=== PATIENT | male | born 1970 | race Caucasian/White ===

== ENCOUNTER → 2019-07-18 | Outpatient (CLI) | payer OTHER | END | disposition home or self-care (01) | LOC: LABWHC1 13:23 | DX: Z53.9 Procedure and treatment not carried out, unspecified reason (principal) ==

== ENCOUNTER → 2019-07-18 | Outpatient (CLI) | payer OTHER ==
--- NOTE | 2019-07-18 15:46 | PE ---
Nuclear medicine PET/CT HISTORY: Melanoma, initial Patient received 11.9 mCi F-18 FDG in delayed whole-body scanning was performed. There are no comparison studies available. Neck and chest: Within the left axilla there is an enlarged lymph node present, short axis measuremen t is approximately 2.7 cm. There is hypermetabolic uptake present. There is no mediastinal, hilar, lynch praclavicular, or cervical adenopathy. Coronary artery calcifications are present. No pleural or kirstie cardial effusion. No evident lung mass. ABDOMEN: At the patient's subcutaneous fat level over the left flank there are 2 soft tissue nodules present one of which measures approximately 2.7 cm and the second 15 cm. There is hypermetabolic upta ke associated with these 2 lesions. There is no ascites or retroperitoneal adenopathy. Liver shows lo w attenuation likely due to hepatic steatosis. Aorta shows normal caliber. Osseous structures show no hypermetabolic uptake. Lower extremities are within normal limits. IMPRESSION: Findings suggest metastatic disease as described.
== END | disposition home or self-care (01) ==
LOC: RADPETMAIN 11:57
DX: R59.0 Localized enlarged lymph nodes (principal); I25.10 Atherosclerotic heart disease of native coronary artery without angina pectoris; C43.59 Malignant melanoma of other part of trunk
CPT/HCPCS: 78815; A9552

== ENCOUNTER → 2019-07-21 | Outpatient (CLI) | payer OTHER | END | disposition home or self-care (01) | LOC: LABWHC1 09:11 | DX: Z01.818 Encounter for other preprocedural examination (principal); Z88.0 Allergy status to penicillin ==

== ENCOUNTER → 2019-12-22 | Outpatient (CLI) | payer OTHER ==
--- NOTE | 2019-12-22 21:51 | MR ---
EXAMINATION TYPE: MR tspine/lspine wo/w con DATE OF EXAM: 12/22/2019 COMPARISON: Nuclear medicine PET/CT 07/18/2019 HISTORY: Paresthesia, melanoma. TECHNIQUE: Multiplanar, multisequence images of the lumbar and thoracic spine is performed without and with IV c ontrast, utilizing 10 mL intravenous Gadavist FINDINGS: Thoracic spine MRI: Marrow reconversion is suspected. Thoracic vertebral bodies show preserved height and alignment. Disc spaces are relatively maintained. There is no evident foraminal encroachment or spinal stenosis. No sizable disc herniation. Thoracic cord signal is normal. C5-C6 shows a small post erior disc herniation in the right paracentral location. There is mild multilevel spondylosis and end plate discogenic marrow signal change. No abnormal enhancement following contrast administration. The re is a slight spinal curvature. IMPRESSION: Marrow reconversion is suspected, correlate for anemia. Mild degenerative disc changes. Lumbar MRI: Lumbar vertebral bodies show preserved height and alignment. There is multilevel spondylosis with end plate discogenic marrow signal change. Loss of disc height signal is greatest at L5-S1 greater than L 4-5. There is no significant spinal stenosis. The conus is at L1 shows an unremarkable appearance. Pepper spect marrow reconversion. L5-S1: There is posterior extension of endplate disc complex. Posterior central disc herniation conta cts the anterior thecal sac and possibly proximal S1 nerve roots. Circumferential extension endplate disc complex causes bilateral foraminal encroachment. There is facet arthropathy change. L4-5: Posterior disc bulge causes anterior mass effect on the thecal sac. There is some facet arthrop athy. No definite foraminal encroachment. L3-4, L2-3, L1-2 within normal limits. No abnormal enhancement following contrast administration. Impression: Degenerative disc disease as described.
== END | disposition home or self-care (01) ==
LOC: RADMRIMAIN 18:59
PROVIDERS: ATTEND Internal Medicine Hematology & Oncology
DX: C43.59 Malignant melanoma of other part of trunk (principal); R20.2 Paresthesia of skin; M50.30 Other cervical disc degeneration, unspecified cervical region; M51.36 Other intervertebral disc degeneration, lumbar region; E11.9 Type 2 diabetes mellitus without complications; Z88.0 Allergy status to penicillin; Z88.8 Allergy status to other drugs, medicaments and biological substances
CPT/HCPCS: 72157; 72158; A9585

== ENCOUNTER → 2019-12-24 | Outpatient (CLI) | payer OTHER ==
--- NOTE | 2019-12-24 13:40 | MR ---
EXAMINATION TYPE: MR brain wo/w con DATE OF EXAM: 12/24/2019 COMPARISON: None HISTORY: Low back pain TECHNIQUE: Multiplanar, multisequence images of the brain and brainstem is performed without and with IV contras t, utilizing 10 mL intravenous Gadavist . FINDINGS: Diffusion weighted images demonstrate no evidence of a recent infarct or other diffusion ab normality. There is approximately 10-15 focal areas of abnormal signal seen scattered throughout the white matter bilaterally which are not thick. All measure less than 5 mm. The ventricular system an d cisternal spaces are normal in size and appearance. The brain volume is age appropriate. Midline structures demonstrate normal morphology. The craniocervical junction appears within normal limits. Post contrast images demonstrate no abnormal enhancement. The dural venous sinuses appear pa tent. Tiny Thornwaldt cyst within the posterior nasopharynx. Mild chronic sinusitis and the globes ar e intact. IMPRESSION: 1. No acute intracranial process. No enhancing masses. 2. There are approximately 10-15 focal areas of abnormal signal seen scattered throughout the white m atter which are nonspecific. All measure less than 5 mm and most likely in the basis of hypertension, migraine headaches, or tiny areas of remote microvascular ischemia. Demyelinating process not entire ly excluded.
== END | disposition home or self-care (01) ==
LOC: RADMRIMAIN 12:18
PROVIDERS: ATTEND Internal Medicine Hematology & Oncology
DX: C43.59 Malignant melanoma of other part of trunk (principal); R93.0 Abnormal findings on diagnostic imaging of skull and head, not elsewhere classified
CPT/HCPCS: 70553; A9585

== ENCOUNTER → 2019-12-26 | Outpatient (CLI) | payer OTHER ==
--- NOTE | 2019-12-29 01:06 | CT ---
EXAMINATION TYPE: CT ChestAbdPelvis w con DATE OF EXAM: 12/26/2019 COMPARISON: PET/CT 07/18/2019 HISTORY: F/U for melanoma CT DLP: 1957.6 mGycm Automated exposure control for dose reduction was used. CONTRAST: CT scan of the chest, abdomen and pelvis is performed with Oral Contrast and with IV Contrast, patien t injected with 100 mL of Isovue 300. FINDINGS: LUNGS: Lungs are grossly clear. No concerning parenchymal mass or nodule identified. No pleural effus ion. No pneumothorax. The tracheobronchial tree is patent. MEDIASTINUM/SOFT TISSUES: Postsurgical changes of the left axilla scarring. No axillary, hilar, or me diastinal lymphadenopathy greater than 1 cm. Cardiac size is normal. No pericardial effusion. No thor acic aortic aneurysm. LIVER: Normal. BILIARY SYSTEM: Normal. PANCREAS: Normal. SPLEEN: Normal. ADRENALS: Normal. KIDNEYS: Normal. BOWEL: No obstruction or thickening. PERITONEUM: No pneumoperitoneum. No free fluid. LYMPH NODES: No lymphadenopathy. PELVIS: Normal. VASCULATURE: No abdominal aortic aneurysm. MUSCULOSKELETAL: There is likely been resection the previously demonstrated left subcutaneous soft t issue nodules, with thickening of the cutaneous tissues likely scar. No aggressive osseous destructiv e lesions. Degenerative changes of the spine. IMPRESSION: Likely postsurgical resection changes and scarring of the left axilla and left flank. No evidence of new metastatic melanoma of the chest, abdomen, or pelvis.
== END | disposition home or self-care (01) ==
LOC: RADCTMAIN 13:28
PROVIDERS: ATTEND Internal Medicine Hematology & Oncology
DX: C43.59 Malignant melanoma of other part of trunk (principal); E11.9 Type 2 diabetes mellitus without complications; Z88.0 Allergy status to penicillin
CPT/HCPCS: 82565; 84520; 71260; 74177; 36415; Q9967

== ENCOUNTER → 2023-04-16 | Outpatient (CLI) | payer OTHER ==
--- NOTE | 2023-04-16 12:45 | US ---
EXAMINATION TYPE: US groin LT DATE OF EXAM: 04/16/2023 COMPARISON: NONE CLINICAL INDICATION: Male, 53 years old with history of R59.9 ENLARGED LYMPH NODES, UNSPECIFIED; Lump left groin for 4-6 weeks, getting larger in size. History of Melanoma 3 years ago TECHNIQUE: FINDINGS: Complex heterogeneous area left groin = 7.8 x 3.6 x 5.7cm this is nonspecific. Recommend a dditional workup with CT pelvis. IMPRESSION: 1. Abnormal mass left groin corresponding to the palpable abnormality. Additional workup with CT is r ecommended.
== END | disposition home or self-care (01) ==
LOC: RADUSWWP 10:31
PROVIDERS: ATTEND Surgery
DX: R59.9 Enlarged lymph nodes, unspecified (principal); Z85.820 Personal history of malignant melanoma of skin

== ENCOUNTER 2023-04-27 05:46 | Day surgery (SDC) | payer OTHER ==
[2023-04-24 15:34] VITALS: BMI 32.1
[2023-04-27] MEDS ORDERED: droPERidol 5 MG/2 ML VIAL IVP ONE (06:20)
[2023-04-27] MEDS: LIDOCAINE 1% (10MG/ML) FOR IV START INTRADERMA PRN (06:27)
[2023-04-27] MEDS: ACETAMINOPHEN TAB 500 MG TAB PO PRN (06:27)
[2023-04-27] MEDS: LACTATED RINGERS 1,000 ML IV SCH (06:28)
[2023-04-27] MEDS: HEPARIN SODIUM,PORCINE 5,000 UNIT/ML 1 ML VIAL SQ PRN (06:28)
[2023-04-27] MEDS: ONDANSETRON 4 MG/2 ML VIAL IVP ONE (06:28)
[2023-04-27] MEDS: DEXAMETHASONE SOD PHOSPHATE 4 MG/ML 1 ML VIAL IV ONE (06:28)
[2023-04-27] MEDS ORDERED: ACETAMINOPHEN TAB 500 MG TAB ONE (06:31)
[2023-04-27 06:38] VITALS: TEMP 97.6
[2023-04-27 06:49] LABS: Glucose,Whole Blood 235 mg/dL (70-110)
[2023-04-27] MEDS ORDERED: HYDROmorphone 0.5 MG/0.5 ML SYRINGE IVP PRN (07:00)
[2023-04-27] MEDS ORDERED: LIDOCAINE 1% INJ 10MG/ML (20 ML MDV) ONE (07:14)
[2023-04-27] MEDS ORDERED: MIDAZOLAM 2 MG/2 ML VIAL ONE (07:14)
[2023-04-27] MEDS ORDERED: fentaNYL (PF) 50 MCG/ML 2 ML AMP ONE (07:14)
[2023-04-27] MEDS ORDERED: KETOROLAC 15 MG/ML 1 ML VIAL ONE (07:14)
[2023-04-27] MEDS ORDERED: PROPOFOL 10 MG/ML 20 ML VIAL IV ONE (07:14)
[2023-04-27] MEDS: BUPIVACAINE (PF) 0.25% 30 ML VIAL SQ ONE (07:44)
[2023-04-27 08:19] LABS: Glucose,Whole Blood 205 mg/dL (70-110)
[2023-04-27] MEDS: hydrALAZINE HCL 20 MG/ML 1 ML VIAL IVP ONE (08:44)
--- NOTE | 2023-04-27 08:53 | P.OP ---
Date of Procedure: 04/27/23 Preoperative Diagnosis: Left inguinal lymphadenopathy Postoperative Diagnosis: Left inguinal lymphadenopathy Procedure(s) Performed: Excision of left inguinal lymph node Anesthesia: PARISH Surgeon: Scott Jacques Estimated Blood Loss (ml): 10 Pathology: other (Lymph node) Condition: stable Disposition: PACU Description of Procedure: The patient's placed on the operative table in supine position. He received general endotracheal tube anesthesia. His left groin was prepped and draped usual fashion. The patient had a 5 cm mass just below the ilioinguinal crease. The skin was incised. Using left cautery and blunt dissection the mass was dissected free. The Harmonic scissors anesthetizing. The specimens of pathology. The was retrieved cyst. Several small bleeding points were quite guarded. Surgicel pallor placed a wound. There is no bleeding seen. A KARLA drains placed a wound brought through separate stab incision. The subcutaneous layer was closed with 3-0 Vicryl. Skin was closed doreen. Patient top she will. He was sent to recovery in stable condition.
[2023-04-27 10:39] VITALS: BP 171/84; PULSE 61; RESP 16
== END 2023-04-27 10:19 | disposition home or self-care (01) ==
LOC: OR 05:46
PROVIDERS: ATTEND Surgery
DX: C85.15 Unspecified B-cell lymphoma, lymph nodes of inguinal region and lower limb (principal); E11.9 Type 2 diabetes mellitus without complications; I10 Essential (primary) hypertension; Z88.0 Allergy status to penicillin; Z87.891 Personal history of nicotine dependence; Z79.899 Other long term (current) drug therapy; Z79.84 Long term (current) use of oral hypoglycemic drugs
CPT/HCPCS: 38531; 88342; 88307; 88341; J2250; J0360; J1644; J0690; J2405; J2001; J3010; J1885; J2704; J0665

== ENCOUNTER → 2023-05-14 | Outpatient (CLI) | payer OTHER ==
--- NOTE | 2023-05-15 18:17 | CA ---
Transthoracic Echo Report Name: Sixto Alarcon Age: 53 Gender: M : 1970 Exam Date: 05/14/2023 15:23 Exam Location: [facility] Ht (in): 71 Wt (lb): 234 Ordering Physician: Jean-Paul Carballo MD Attending/Referring Phys: Director Search Deepthi Barksdale RCS Procedure CPT: Indications: Z01.818 Chemo exposure Cardiac Hx: Technical Quality: Technically difficult study Contrast 1: Definity Total Dose (mL): 2 Contrast 2: Total Dose (mL): MEASUREMENTS (Male / Female) Normal Values 2D ECHO LV Diastolic Diameter PLAX 5.7 cm 4.2 - 5.9 / 3.9 - 5.3 cm LV Systolic Diameter PLAX 4.2 cm IVS Diastolic Thickness 0.8 cm 0.6 - 1.0 / 0.6 - 0.9 cm LVPW Diastolic Thickness 1.0 cm 0.6 - 1.0 / 0.6 - 0.9 cm LV Relative Wall Thickness 0.3 RV Internal Dim ED PLAX 2.6 cm LVOT Diameter 2.4 cm LV Diastolic Volume MOD BP 113.7 cm??? 67 - 155 / 56 - 104 cm??? LV Systolic Volume MOD BP 43.6 cm??? 22 - 58 / 19 - 49 cm??? LV Ejection Fraction MOD BP 61.6 % >= 55 % LV Cardiac Index MOD BP 2038.1 cm???/min???m??? LV Diastolic Volume MOD 4C 124.0 cm??? LV Systolic Volume MOD 4C 47.8 cm??? LV Ejection Fraction MOD 4C 61.5 % LV Cardiac Index MOD 4C 2216.3 cm???/min???m??? LV Diastolic Length 4C 8.3 cm LV Systolic Length 4C 7.1 cm LV Diastolic Volume MOD 2C 101.1 cm??? LV Systolic Volume MOD 2C 35.6 cm??? LV Ejection Fraction MOD 2C 64.8 % LV Cardiac Index MOD 2C 1904.9 cm???/min???m??? LV Diastolic Length 2C 8.0 cm LV Systolic Length 2C 6.3 cm LA Volume 49.0 cm??? 18 - 58 / 22 - 52 cm??? LA Volume Index 21.0 cm???/m??? 16 - 28 cm???/m??? Ascending Aorta Diameter 3.3 cm DOPPLER AV Peak Velocity 133.1 cm/s AV Peak Gradient 7.1 mmHg AV Mean Velocity 91.0 cm/s AV Mean Gradient 3.8 mmHg AV Velocity Time Integral 21.2 cm LVOT Peak Velocity 121.2 cm/s LVOT Peak Gradient 5.9 mmHg LVOT Velocity Time Integral 18.5 cm LVOT Stroke Volume 80.8 cm??? LVOT Stroke Volume Index 35.9 ml/m??? LVOT Cardiac Index 2350.9 cm???/min???m??? AV Area Cont Eq vti 3.8 cm??? AV Area Cont Eq pk 4.0 cm??? MV Area PHT 3.6 cm??? Mitral E Point Velocity 39.2 cm/s Mitral A Point Velocity 44.4 cm/s Mitral E to A Ratio 0.9 MV Deceleration Time 212.0 ms MV E' Velocity 6.3 cm/s Mitral E to MV E' Ratio 6.2 PV Peak Velocity 83.7 cm/s PV Peak Gradient 2.8 mmHg FINDINGS Left Ventricle Left ventricular ejection fraction is estimated at 55-60 %. Left ventricular cavity size normal. Left ventricular wall thickness normal. No obvious regional wall motion abnormalities. Right Ventricle Normal right ventricular size and function. Unable to estimate right ventricular systolic function. Right Atrium Normal right atrial size. Left Atrium Normal left atrial size. Mitral Valve Structurally normal mitral valve. No mitral stenosis, regurgitation or prolapse. Aortic Valve Trileaflet aortic valve. Focal thickening of the aortic valve cusps. No aortic stenosis. Mild to moderate aortic regurgitation. Tricuspid Valve Structurally normal tricuspid valve. No tricuspid stenosis. No tricuspid regurgitation. Pulmonic Valve Structurally normal pulmonic valve. No pulmonic stenosis. Trace pulmonic regurgitation. Pericardium No pericardial effusion. Aorta Normal size aortic root and proximal ascending aorta. CONCLUSIONS 1. Normal left ventricle size and systolic function 2. Mild to moderate aortic regurgitation Definity ECHO contrast used for improved visualization of the endocardial borders (inadequate visualization of two or more contiguous segments). Previewed by: Dr. Angie Sky MD (Electronically Signed) Final Date: 15 May 2023 18:16
== END | disposition home or self-care (01) ==
LOC: RADECHMAIN 15:11
PROVIDERS: ATTEND Internal Medicine Hematology & Oncology
DX: Z01.818 Encounter for other preprocedural examination (principal); I35.1 Nonrheumatic aortic (valve) insufficiency; C43.59 Malignant melanoma of other part of trunk; G62.9 Polyneuropathy, unspecified; E11.9 Type 2 diabetes mellitus without complications; M10.9 Gout, unspecified; E78.00 Pure hypercholesterolemia, unspecified; I10 Essential (primary) hypertension
CPT/HCPCS: C8929; Q9957; 93306

== ENCOUNTER 2023-05-21 08:15 | Day surgery (SDC) | payer OTHER ==
[~2023-05-21 08:15] MED LIST: HYDROmorphone 0.5 MG/0.5 ML SYRINGE IVP PRN; LIDOCAINE 1% (10MG/ML) FOR IV START INTRADERMA PRN; Pre Op ABX Message 1 EACH MISC MISCELLANE ONE
[2023-05-21 09:03] LABS: Glucose,Whole Blood 230 mg/dL (70-110)
[2023-05-21] MEDS: LACTATED RINGERS 1,000 ML IV SCH (09:03)
[2023-05-21 09:07] VITALS: TEMP 97.9
[2023-05-21] MEDS: ONDANSETRON 4 MG/2 ML VIAL IVP ONE (09:07)
[2023-05-21] MEDS: BUPIVACAINE (PF) 0.25% 30 ML VIAL SQ ONE (10:11)
[2023-05-21] MEDS: IOPAMIDOL-370 100ML BTL MISCELLANE ONE (10:12)
[2023-05-21] MEDS ORDERED: LIDOCAINE 1% INJ 10MG/ML (20 ML MDV) ONE (10:19)
[2023-05-21] MEDS ORDERED: fentaNYL (PF) 50 MCG/ML 2 ML AMP ONE (10:19)
[2023-05-21] MEDS ORDERED: PROPOFOL 10 MG/ML 20 ML VIAL IV ONE (10:19)
[2023-05-21] MEDS ORDERED: MIDAZOLAM 2 MG/2 ML VIAL ONE (10:19)
[2023-05-21] MEDS: ceFAZolin 1,000 MG VIAL IVPB ONE (10:30)
--- NOTE | 2023-05-21 11:05 | P.OP ---
Date of Procedure: 05/21/23 Preoperative Diagnosis: lymphoma Postoperative Diagnosis: lymphoma Procedure(s) Performed: insertion of right subclavian Port-A-Cath Anesthesia: PARISH Surgeon: Scott Jacques Estimated Blood Loss (ml): 5 Pathology: none sent Condition: stable Disposition: PACU Description of Procedure: mThe patient was placed on the operating table in the supine position. The patient received IV sedation. The patient's chest was prepped and draped in the usual sterile fashion. A roll had been placed between the shoulder blades in a longitudinal fashion. After prepping and draping the skin was anesthetized 1% local Xylocaine. And then using the Seldinger technique the subclavian vein was cannulated. A wire was placed into the vein and fluoroscopy position the wire at the atrial caval junction. Next the dilator sheath was placed over top the wire and the wire was withdrawn. The catheter was positioned at the atriocaval position. The catheter was placed through the sheath after the dilator was withdrawn. The sheath was then withdrawn. Position of the catheter was confirmed with fluoroscopy. The Port-A-Cath was connected to the catheter. The Port-A-Cath was flushed with saline and then heparinized saline. The skin was closed interrupted 3-0 Monocryl suture. Dermabond was applied. Patient tolerated procedure well and was sent to recovery room stable condition.
[2023-05-21 11:24] LABS: Glucose,Whole Blood 237 mg/dL (70-110)
--- NOTE | 2023-05-21 11:36 | FL ---
Fluoroscopy History: INSERT PORT A CATH dap 0.3730 fl 1.2 rt side port a cath insertied
--- NOTE | 2023-05-21 11:47 | XR ---
EXAMINATION TYPE: XR chest 1V portable DATE OF EXAM: 05/21/2023 HISTORY: Shortness of breath. COMPARISON: None. TECHNIQUE: Single view of the chest is submitted. FINDINGS: Demonstrated are scattered senescent parenchymal change. Right-sided MediPort catheter with distal t ip overlying the SVC. No pneumothorax present. There is no evidence for focal infiltrate. The heart is stable. Hilar and mediastinal structures are within normal limits. Degenerative changes are seen of the dorsal spine. IMPRESSION: 1. Right-sided MediPort catheter with distal tip overlying the SVC. No pneumothorax present.
[2023-05-21] MEDS: HYDROmorphone 0.5 MG/0.5 ML SYRINGE IVP ONE (11:50)
[2023-05-21] MEDS: INSULIN ASPART (NovoLOG) 100 UNIT/ML VIAL SQ ONE (11:50)
[2023-05-21 13:29] VITALS: BP 157/84; PULSE 59; RESP 18
== END 2023-05-21 13:22 | disposition home or self-care (01) ==
LOC: OR 08:15
PROVIDERS: ATTEND Surgery
DX: C85.90 Non-Hodgkin lymphoma, unspecified, unspecified site (principal); I10 Essential (primary) hypertension; E78.5 Hyperlipidemia, unspecified; E11.9 Type 2 diabetes mellitus without complications; Z79.02 Long term (current) use of antithrombotics/antiplatelets; Z79.899 Other long term (current) drug therapy; Z88.0 Allergy status to penicillin
CPT/HCPCS: 77001; 71045; 36561; C1788; J2250; J2405; J0690; J2001; J3010; J1642; J2704; J1170; J0665

== ENCOUNTER → 2023-05-24 | Outpatient (CLI) | payer OTHER | END | disposition home or self-care (01) | LOC: RADPETMAIN 08:10 | PROVIDERS: ATTEND Internal Medicine Hematology & Oncology | DX: Z53.9 Procedure and treatment not carried out, unspecified reason (principal) ==

== ENCOUNTER → 2023-05-31 | Outpatient (CLI) | payer OTHER ==
--- NOTE | 2023-06-01 16:05 | PE ---
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 Images are reviewed on the computer in the coronal, axial, and sagittal planes. Reconstructed rotating images are created on independent workstation and reviewed on the computer. A non-contrast CT is performed in conjunction with the PET scan. Glucose level 128 mg/dL CT DLP: 1292 mGycm, Automated exposure control for dose reduction was used. COMPARISON: CT 12/26/2019, PET/CT 07/18/2019, FINDINGS: Mediastinal SUV mean is 1.5. Hepatic parenchyma SUV mean is 2.1. SKULL BASE AND NECK: No suspicious radiotracer activity. CHEST, MEDIASTINUM, AND HILAR REGION: Left lower lung pulmonary nodule measuring up to 20 x 12 mm Max SUV 18.3. ABDOMEN AND PELVIS: No suspicious radiotracer activity. MUSCULOSKELETAL STRUCTURES: No suspicious radiotracer activity. Conglomerate FDG avid soft tissue mass within the left inguinal region measuring 5.8 cm x 4.6 Max SUV 22.2 and more inferiorly connecting to this measuring Max SUV 2.8 measuring 7.1 x 4.2 cm which appea rs to connect to the more superior mass. Findings likely represent large conglomerate mass. There is cavitation within this mass. There is a tract extending away from this lesion max SUV 11.0. Left inguinal lymph node measuring 12 mm short axis max SUV 14.4. OTHER CT: Atherosclerosis of the carotid bifurcations. Right chest wall [id number] tip terminating superior vena cava. The heart is mildly enlarged for size. Moderate coronary artery calcifications. IMPRESSION: Large left anterior thigh/upper medial lower extremity conglomerate mass with intense uptake compatib le with malignancy. There is at least one lymph node present. Distant metastatic disease wi thin a left lower lung 20 mm pulmonary nodule.
== END | disposition home or self-care (01) ==
LOC: RADPETMAIN 13:44
PROVIDERS: ATTEND Internal Medicine Hematology & Oncology
DX: C78.02 Secondary malignant neoplasm of left lung (principal); C43.59 Malignant melanoma of other part of trunk; R91.1 Solitary pulmonary nodule
CPT/HCPCS: 78815; A9552

== ENCOUNTER 2023-06-20 11:40 | Day surgery (SDC) | payer OTHER ==
[2023-06-18 16:01] VITALS: BMI 32.9
[~2023-06-20 11:40] MED LIST changes: -HYDROmorphone 0.5 MG/0.5 ML SYRINGE IVP PRN; +LACTATED RINGERS 1,000 ML IV SCH; -Pre Op ABX Message 1 EACH MISC MISCELLANE ONE
[2023-06-20] MEDS: LACTATED RINGERS 1,000 ML IV SCH (12:22)
[2023-06-20 12:44] LABS: Glucose,Whole Blood 155 mg/dL (70-110)
[2023-06-20] MEDS ORDERED: IPRATROPIUM-ALBUTEROL 3 ML NEB ONE (12:53)
[2023-06-20] MEDS: ALBUTEROL NEBULIZED 2.5 MG/3 ML INHALATION ONE (12:58)
--- NOTE | 2023-06-20 13:01 | CT ---
EXAMINATION TYPE: CT chest wo con DATE OF EXAM: 06/20/2023 COMPARISON: 12/26/2019 HISTORY: ION CHEST CT DLP: 615 mGycm Automated exposure control for dose reduction was used. Contrast: None Technique: Axial images 1 mm thick sections. FINDINGS: There is a left lower lobe nodule measuring 2.2 x 1.7 cm. Ascending thoracic aorta at the main pulmonary artery is 3.6 cm. Main pulmonary artery the bifurcatio n is 2.7 cm. No enlarged mediastinal or hilar adenopathy is evident. There are a few shotty lymph nod es present within the mediastinum. The largest appears to measure 0.9 cm in the aortopulmonic window. Vascular calcifications within the coronary arteries. No significant pericardial effusion present. Limited CT sections are obtained through the upper abdomen which are unremarkable. IMPRESSION: 1. LEFT LOWER LOBE NODULE. 2. CT FOR BRONCHOSCOPY GUIDANCE.
[2023-06-20] MEDS ORDERED: VASOPRESSIN 20 UNIT/ML 1 ML VIAL ONE (13:05)
[2023-06-20] MEDS ORDERED: LIDOCAINE 1% INJ 10MG/ML (20 ML MDV) ONE (13:05)
[2023-06-20] MEDS ORDERED: fentaNYL (PF) 50 MCG/ML 2 ML AMP ONE (13:05)
[2023-06-20] MEDS ORDERED: KETAMINE HCL IN 0.9 % NACL 50 MG/5 ML SYRINGE ONE (13:05)
[2023-06-20] MEDS ORDERED: PHENYLEPHRINE 10 MG/ML VIAL ONE (13:05)
[2023-06-20] MEDS ORDERED: PROPOFOL 10 MG/ML 20 ML VIAL IV ONE (13:05)
[2023-06-20] MEDS ORDERED: MIDAZOLAM 2 MG/2 ML VIAL ONE (13:05)
[2023-06-20] MEDS ORDERED: SUCCINYLCHOLINE CHLORIDE 200 MG/10 ML VIAL IV ONE (13:05)
[2023-06-20] MEDS ORDERED: SUGAMMADEX SODIUM 200 MG/2 ML SDV IV ONE (13:05)
[2023-06-20] MEDS ORDERED: ROCURONIUM 10 MG/ML (5 ML VIAL) IV ONE (13:05)
--- NOTE | 2023-06-20 14:09 | P.PCN ---
Date of Procedure: 06/20/23 Operative Findings: Preoperative Diagnosis: Left lower lobe pulmonary mass Preoperative Diagnosis: Left lower lobe pulmonary mass Postoperative Diagnosis: same Procedure(s) Performed: Flexible bronchoscopy Robotic-assisted bronchoscopy and addition to radial ultrasound evaluation of the left lower lobe pulmonary mass, 20 mm Robotic-assisted transbronchial needle aspirate, transbronchial biopsies of the left lower lobe pulmonary nodule in addition to a bronchioloalveolar lavage Anesthesia: PARISH Surgeon: Deborah Blake Estimated Blood Loss (ml): 0 Pathology: other Condition: stable Disposition: same day Operative Findings: A physical exam was performed. Informed consent was obtained from the patient after explaining all the risks (pneumothorax, life threatening bleeding, infection and adverse effects due to medications), benefits and alternatives to the procedure which the patient appeared to understand and so stated. The patient was connected to the monitoring devices. General anesthesia was induced and the patient was intubated by anesthesia. A final timeout was performed and the procedure confirmed by the attending staff bronchoscopist. The bronchoscope was inserted and the airway examined. The flexible bronchoscope was removed and the robotic bronchoscope was inserted. Registration was completed. I next guided the robotic bronchoscope using the navigation system into the left lower lobe posterior segment. Once in proper position, the bronchoscope was frozen. The radial EBUS probe was placed through the bronchoscope and confirmed abnormal u/s images vs normal lung. A needle was placed through the working channel and under fluoroscopic guidance, we sampled the area thought to have the mass twice. We then used a cloud biopsy pattern with ultrasound confirmation for 2 additional passes with the needle. U/S evaluation was then used to reconfirm location. Forceps were next introduced through working channel and extended the appropriate distance and 3 transbronchial biopsies were performed using fluoroscopic guidance. The u/s probe was then reinserted to confirm location. When confirmed this process was repeated for a total of 8-10 transbronchial biopsies. After reassessment with EBUS, a brush was placed through the extendable working channel for 1 pass with fluoroscopic guidance. U/S evaluation was then used to confirm location. 40ml of saline was then instilled into the area of the lesion. 10 ml of effluent from the BAL was collected. The aspirate was bloody and ultimately declotted and based on that, the sample was discarded. Flex. bronchoscope was inserted and regular suctioning was done. At the completion of the procedure, no residual secretions or bloody material within the airway. The bronchoscope was removed. The patient was extubated. FINDINGS: 1.The airways appeared normal 2 Successful navigation, ultrasonographic identification, and biopsies of right lower lobe and left lower lobe pulmonary mass 3.The the radial ultrasound view was eccentric/concentric RECOMMENDATIONS: Await pathology and cytology results The referring physician will be alerted to the results when available. The patient was advised to follow up with the referring physician with the biopsy results Patient will be called with results.
--- NOTE | 2023-06-20 15:01 | FL ---
EXAMINATION TYPE: FL bronchoscopy Intraoperative/procedural fluoroscopic services were provided. Tota l fluoroscopy time is 1 min 7 sec with a total of 1 submitted images to PACS. Please see the operativ e/procedural note for further details. DAP: 9.49350 Gycm2
[2023-06-20 15:06] LABS: Glucose,Whole Blood 155 mg/dL (70-110)
[2023-06-20 15:12] VITALS: PULSE 64; RESP 16; TEMP 97.4
--- NOTE | 2023-06-20 15:25 | XR ---
EXAMINATION TYPE: XR chest 1V DATE OF EXAM: 06/20/2023 COMPARISON: 05/21/2023 INDICATION: Post bronchoscopy TECHNIQUE: Single frontal view of the chest is obtained. FINDINGS: The heart size is normal. The pulmonary vasculature is normal. No discrete abnormality is evident. No pneumothorax is evident post bronchoscopy. There is a catheter present on the right with tip direc mary superiorly. This is a change in position from comparison. IMPRESSION: 1. No acute pulmonary process. 2. No pneumothorax postthoracentesis. 3. The orientation of the right central venous catheter tip now directed into the right neck.
[2023-06-20 16:05] VITALS: BP 108/66
== END 2023-06-20 15:38 | disposition home or self-care (01) ==
LOC: ORWHC2ENDO 11:40
PROVIDERS: ATTEND Internal Medicine Critical Care Medicine
DX: J84.09 Other alveolar and parieto-alveolar conditions (principal)
CPT/HCPCS: 88108; 88305; 87070; 87205; 87116; 87102; 87206; 71045; 71250; 31629; 31625; 31623; 31624; J2250; J0330; J2001; J3010; J2704; J2371; S2900

== ENCOUNTER 2023-07-12 11:25 | Day surgery (SDC) | payer OTHER ==
[2023-07-12 12:12] VITALS: BP 157/81; PULSE 68; RESP 16; TEMP 97.9
--- NOTE | 2023-07-12 12:27 | P.PCN ---
Date of Procedure: 07/12/23 Description of Procedure: preprocedure diagnosis: Need for chemotherapy, nonfunctioning port Postprocedure diagnosis same Procedure fluoroscopic interpretation Procedure: Patient was brought to the Medical Certification Specialist and placed in supine position on the [place] table. The previously access port was fluoroscopy evaluated. The catheter itself appeared to be in place terminating up in the internal jugular. Due to the need for repositioning at this point no portogram was performed. Patient was sent back to recovery in stable condition.
--- NOTE | 2023-07-12 13:41 | IR ---
EXAMINATION TYPE: IR cva device check w fluoro Intraoperative/procedural fluoroscopic services were p rovided. CLINICAL INDICATION:Male, 53 years old with history of non working chest port, 0.2min fluoro, 0.2113G ycm2; , [facility] Total fluoroscopy time is 0.2 min. DAP: 21.13 uGym2 Please see the operative/procedural note for further details.
== END 2023-07-12 12:36 | disposition home or self-care (01) ==
LOC: CATHCVL 11:25
PROVIDERS: ATTEND Surgery
DX: Z45.2 Encounter for adjustment and management of vascular access device (principal)
CPT/HCPCS: 36598

== ENCOUNTER 2023-07-17 05:47 | Day surgery (SDC) | payer OTHER ==
[2023-07-17] MEDS ORDERED: HYDROmorphone 0.5 MG/0.5 ML SYRINGE IVP PRN (05:56)
[2023-07-17] MEDS ORDERED: droPERidol 5 MG/2 ML VIAL IVP ONE (05:56)
[2023-07-17] MEDS ORDERED: LACTATED RINGERS 1,000 ML IV SCH (05:56)
[2023-07-17] MEDS ORDERED: LIDOCAINE 1% (10MG/ML) FOR IV START INTRADERMA PRN (05:56)
[2023-07-17] MEDS ORDERED: SCOPOLAMINE 1 MG/72 HR PATCH TRANSDERM ONE (05:56)
[2023-07-17] MEDS: LACTATED RINGERS 1,000 ML IV ONE (06:28)
[2023-07-17 06:51] LABS: Glucose,Whole Blood 354 mg/dL (70-110)
[2023-07-17] MEDS: ONDANSETRON 4 MG/2 ML VIAL IVP ONE (07:03)
[2023-07-17] MEDS: DEXAMETHASONE SOD PHOSPHATE 4 MG/ML 1 ML VIAL IV ONE (07:03)
[2023-07-17] MEDS: ACETAMINOPHEN TAB 500 MG TAB PO PRN (07:03)
[2023-07-17] MEDS: HEPARIN SODIUM,PORCINE 5,000 UNIT/ML 1 ML VIAL SQ PRN (07:03)
[2023-07-17] MEDS: INSULIN ASPART (NovoLOG) 100 UNIT/ML VIAL SQ ONE (07:03)
[2023-07-17] MEDS: BUPIVACAINE (PF) 0.25% 30 ML VIAL SQ ONE (07:23)
[2023-07-17] MEDS: HEPARIN SODIUM,PORCINE 100 UNIT/ML 5 ML VIAL IV ONE (07:23)
[2023-07-17] MEDS: IOPAMIDOL-370 100ML BTL MISCELLANE ONE (07:24)
[2023-07-17] MEDS ORDERED: fentaNYL (PF) 50 MCG/ML 2 ML AMP ONE (07:32)
[2023-07-17] MEDS ORDERED: MIDAZOLAM 2 MG/2 ML VIAL ONE (07:32)
[2023-07-17] MEDS ORDERED: PHENYLEPHRINE 10 MG/ML VIAL ONE (07:32)
[2023-07-17] MEDS ORDERED: LIDOCAINE 1% INJ 10MG/ML (20 ML MDV) ONE (07:32)
[2023-07-17] MEDS ORDERED: KETAMINE HCL IN 0.9 % NACL 50 MG/5 ML SYRINGE ONE (07:32)
[2023-07-17] MEDS ORDERED: PROPOFOL 10 MG/ML 20 ML VIAL IV ONE (07:32)
[2023-07-17 07:51] VITALS: RESP 16
--- NOTE | 2023-07-17 08:26 | P.GSHP ---
History of Present Illness H&P Date: 07/17/23 Chief Complaint: Port-A-Cath malfunction this is a 53-year-old male with history of lymphoma. Patient recently had a Port-A-Cath placed. The catheter high-grade cephalad. She presents today for Port-A-Cath removal and replacement. Past Medical History Past Medical History: Cancer, Diabetes Mellitus, Hyperlipidemia, Hypertension, Skin Disorder Additional Past Medical History / Comment(s): Dx 2020-STAGE 3 MELONOMA-LT SIDE AND BACK- no chemo, no radiation, received immunotherapy for 1 year. Type II diabetic. Open wound lt groin (weeping) pt keeps it covered- r/t biopsy for Lymphoma dx April 2023. April-"They found a spot on my lung." "They don't know what it is." History of Any Multi-Drug Resistant Organisms: None Reported Additional Past Surgical History / Comment(s): 07/12/23 portagram,2020-MELANOMA LT SIDE AND BACK REMOVED WITH 29 LYMPH NODES REMOVED. April of 2023 lt groin did bx r/t Lymphoma. Past Anesthesia/Blood Transfusion Reactions: No Reported Reaction Additional Past Anesthesia/Blood Transfusion Reaction / Comment(s): No hx of blood transfusion. Smoking Status: Former smoker, Vaper - Past Family History Father Family Medical History: Cancer Additional Family Medical History / Comment(s): LYMPHOMA Medications and Allergies Home Medications Medication Instructions Recorded Confirmed Type Ascorbic Acid [Vitamin C] 250 mg PO QAM 04/24/23 07/17/23 History Atorvastatin [Lipitor] 20 mg PO QAM 04/24/23 07/17/23 History Multivit,Calc,Min/FA/K1/Lycop 1 each PO QAM 04/24/23 07/17/23 History [One-A-Day Men's Complete Tab] [place]-3/Dha/Epa/Fish Oil [Fish Oil 1 each PO QAM 04/24/23 07/17/23 History 1,000 mg Softgel] glipiZIDE 5 mg PO QAM 04/24/23 07/17/23 History lisinopriL [Zestril] 20 mg PO QAM 04/24/23 07/17/23 History Acetaminophen Tab [Tylenol] 650 mg PO Q6H PRN 06/18/23 07/17/23 History Allergies Allergy/AdvReac Type Severity Reaction Status Date / Time Penicillins Allergy Unknown Verified 07/17/23 06:29 Childhood Surgical - Exam Vital Signs Temp Pulse Resp BP Pulse Ox 96.8 F L 72 16 120/70 99 07/17/23 06:28 07/17/23 06:28 07/17/23 06:28 07/17/23 06:28 07/17/23 06:28 - General well developed, well nourished, no distress - Eyes PERRL - ENT normal pinna - Neck no masses - Respiratory normal expansion - Cardiovascular Rhythm: regular - Abdomen Abdomen: soft, non tender Results - Labs Abnormal Lab Results - Last 24 Hours (Table) 07/17/23 Range/Units 06:48 POC Glucose (mg/dL) 354 H (70-110) mg/dL Assessment and Plan Assessment: history of lymphoma. Port-A-Cath will function. Patient was scheduled for removal and replacement of Port-A-Cath.
--- NOTE | 2023-07-17 08:28 | P.OP ---
Date of Procedure: 07/17/23 Preoperative Diagnosis: lymphoma Port-A-Cath malfunction Postoperative Diagnosis: lymphoma Port-A-Cath malfunction Procedure(s) Performed: removal of Port-A-Cath Replacement of Port-A-Cath Anesthesia: PARISH Surgeon: Scott Jacques Estimated Blood Loss (ml): 5 Pathology: none sent Condition: stable Disposition: PACU Description of Procedure: The patient was placed on the operating table in the supine position. The patient received IV sedation. The patient's chest was prepped and draped in the usual sterile fashion. A roll had been placed between the shoulder blades in a longitudinal fashion. After prepping and draping the skin was anesthetized 1% local Xylocaine. A skin incision made over the existing Port-A-Cath. Then using blunt and sharp dissection with cautery the Port-A-Cath was dissected free and sent to pathology. And then using the Seldinger technique the subclavian vein was cannulated. A wire was placed into the vein and fluoroscopy position the wire at the atrial caval junction. Next the dilator sheath was placed over top the wire and the wire was withdrawn. The catheter was positioned at the atriocaval position. The catheter was placed through the sheath after the dilator was withdrawn. The sheath was then withdrawn. Position of the catheter was confirmed with fluoroscopy. The Port-A-Cath was connected to the catheter. The Port-A-Cath was flushed with saline and then heparinized saline. The skin was closed interrupted 3-0 Monocryl suture. Dermabond was applied. Patient tolerated procedure well and was sent to recovery room stable condition.
[2023-07-17 08:44] LABS: Glucose,Whole Blood 322 mg/dL (70-110)
[2023-07-17 08:48] VITALS: TEMP 97.3
--- NOTE | 2023-07-17 09:26 | XR ---
EXAMINATION TYPE: XR chest 1V portable DATE OF EXAM: 07/17/2023 COMPARISON: 06/20/2023 HISTORY: Port-A-Cath TECHNIQUE: Single frontal view of the chest is obtained. FINDINGS: There is no focal air space opacity, pleural effusion, or pneumothorax seen. The cardiac silhouette size is within normal limits. Degenerative change of the spine. Limited inspiration. Right -sided Port-A-Cath seen with tip overlying SVC IMPRESSION: 1. Port-A-Cath appears in good position with tip catheter overlying
[2023-07-17 09:46] VITALS: BP 114/82; PULSE 55
== END 2023-07-17 09:46 | disposition home or self-care (01) ==
LOC: OR 05:47
PROVIDERS: ATTEND Surgery
DX: T82.598A Other mechanical complication of other cardiac and vascular devices and implants, initial encounter (principal); I10 Essential (primary) hypertension; E78.5 Hyperlipidemia, unspecified; E11.9 Type 2 diabetes mellitus without complications; Z79.84 Long term (current) use of oral hypoglycemic drugs; Z85.820 Personal history of malignant melanoma of skin; Z87.891 Personal history of nicotine dependence; Z88.0 Allergy status to penicillin; Z79.899 Other long term (current) drug therapy; Y83.8 Other surgical procedures as the cause of abnormal reaction of the patient, or of later complication, without mention of misadventure at the time of the procedure
CPT/HCPCS: 77001; 71045; 36582; C1788; J2250; J1644; J1642; J1100; J0690; J2405; J2001; J3010; J2704; Q9967; J2371; J0665

== ENCOUNTER → 2023-08-03 | Outpatient (CLI) | payer OTHER ==
--- NOTE | 2023-08-05 20:36 | PE ---
EXAMINATION TYPE: PET CT fusion skull to thigh DATE OF EXAM: 08/03/2023 CLINICAL INDICATION:Male, 53 years old with history of C43.59 MALIGNANT MELANOMA OF OTHER PART OF SHEILA NK; TECHNIQUE: Following the intravenous administration of 10.1 mCi of F-18 FDG, whole body images are performed from the skull base to the midthigh. Images are reviewed on the computer in the coronal, a xial, and sagittal planes. Reconstructed rotating images are created on independent workstation and reviewed on the computer. A non-contrast CT is performed in conjunction with the PET scan. Glucose level 198 mg/dL CT DLP: 977 mGycm, Automated exposure control for dose reduction was used. COMPARISON: CT 12/26/2019, PET/CT 05/31/2023. 07/18/2019, FINDINGS: Mediastinal SUV mean is 1.9. Hepatic parenchyma SUV mean is 3.3. SKULL BASE AND NECK: No suspicious radiotracer activity. CHEST, MEDIASTINUM, AND HILAR REGION: * Left lower lung pulmonary nodule measuring up to 20 x 12 mm Max SUV 11.5, previously 18.3. ABDOMEN AND PELVIS: No suspicious radiotracer activity. MUSCULOSKELETAL STRUCTURES: Decrease in conglomerate FDG avid soft tissue mass within the left inguinal region measuring measurin g 3.9 x 2.0 cm previously 7.5 x 4.4 cm. Now max SUV of this region 4.5, previously 23.1. There remain s some ill-defined streaky soft tissue in this left inguinal region Focus of uptake near the left inguinal canal is no longer visualized. OTHER CT: Atherosclerosis of the carotid bifurcations. Right chest wall [id number]-u-[id number] tip terminating superior vena cava. The heart is mildly enlarged for size. Moderate coronary artery calcifications. IMPRESSION: 1. Positive response to therapy with decrease in size and FDG activity of the soft tissue mass in th e left inguinal region. 2. Decrease in FDG avid left lower lung pulmonary nodule which is FDG avid compatible with neoplasti c process. Uncertain if this is a secondary primary malignancy or metastatic disease.
== END | disposition home or self-care (01) ==
LOC: RADPETMAIN 15:22
PROVIDERS: ATTEND Surgery
DX: C43.59 Malignant melanoma of other part of trunk (principal); R91.1 Solitary pulmonary nodule
CPT/HCPCS: 78815; A9552

== ENCOUNTER → 2023-11-02 | Outpatient (CLI) | payer OTHER | END | disposition home or self-care (01) | LOC: RADPETMAIN 10:08 | PROVIDERS: ATTEND Internal Medicine Hematology & Oncology | DX: Z53.9 Procedure and treatment not carried out, unspecified reason (principal) ==

== ENCOUNTER → 2023-11-08 | Outpatient (CLI) | payer OTHER | END | disposition home or self-care (01) | LOC: RADPETMAIN 06:53 | PROVIDERS: ATTEND Internal Medicine Hematology & Oncology | DX: Z53.9 Procedure and treatment not carried out, unspecified reason (principal) ==

== ENCOUNTER → 2023-11-16 | Outpatient (CLI) | payer OTHER ==
--- NOTE | 2023-11-17 10:51 | PE ---
EXAMINATION TYPE: PET CT fusion skull to thigh DATE OF EXAM: 11/16/2023 CLINICAL INDICATION:Male, 53 years old with history of C43.59 lymphoma; TECHNIQUE: Following the intravenous administration of 10.67 mCi of F-18 FDG, whole body images are performed from the skull base to the midthigh. Images are reviewed on the computer in the coronal, axial, and sagittal planes. Reconstructed rotating images are created on independent workstation and reviewed on the computer. A non-contrast CT is performed in conjunction with the PET scan. Glucose level 145 mg/dL CT DLP: 980 mGycm, Automated exposure control for dose reduction was used. COMPARISON: CT None, PET/CT 08/03/2023, MRI: None FINDINGS: Mediastinal SUV mean is 2.01. Hepatic parenchyma SUV mean is 2.83 SKULL BASE AND NECK: No suspicious radiotracer activity. CHEST, MEDIASTINUM, AND HILAR REGION: * Enlarging Left lower lung pulmonary nodule measuring up to 21 x 16 mm, previously 20 x 12 mm Max S UV max SUV 20.1, previously 11.5, 18.3. ABDOMEN AND PELVIS: No suspicious radiotracer activity. MUSCULOSKELETAL STRUCTURES: * Mildly decreased in size/volume of soft tissue mass within the left inguinal region which is somew hat irregular shaped and hard to measure and compare. Now max SUV of this region 3.7, previously 4.5, 23.1. * Focus of uptake near the left inguinal canal is no longer visualized. * Diffuse bone marrow uptake compatible with medicine colony stimulating factor OTHER CT: Atherosclerosis of the carotid bifurcations. Right chest wall Ytuhiu-c-Qjau tip terminating superior vena cava. The heart is mildly enlarged for size. Moderate coronary artery calcifications. IMPRESSION: 1. Increasing size and FDG activity of left lower lung pulmonary nodule suggesting progression of di sease. 2. Decreased volume of left inguinal region soft tissue and decrease in FDG activity within this reg ion. 3. Patchy uptake throughout the osseous structures bone marrow correlate for colony stimulating fact or use. [facility], , 11/17/2023 10:48 AM
== END | disposition home or self-care (01) ==
LOC: RADPETMAIN 14:47
PROVIDERS: ATTEND Surgery
DX: C43.59 Malignant melanoma of other part of trunk
CPT/HCPCS: 78815

== ENCOUNTER → 2024-03-04 | Outpatient (CLI) | payer OTHER ==
[2024-03-04 09:51] LABS: African American GFR (CKD) >90 (>60 ml/min/1.73 sqM); Blood Urea Nitrogen 11 mg/dL (9-20); Non-African American GFR(CKD) 90 (>60 ml/min/1.73 sqM)
--- NOTE | 2024-03-05 14:49 | CT ---
EXAMINATION TYPE: CT ChestAbdPelvis w con DATE OF EXAM: 03/04/2024 11:20 AM COMPARISON: PET/CT 11/16/2023 CLINICAL INDICATION: Male, 53 years old with history of C83.38 Lymphoma, lymphoma, spot on lung TECHNIQUE: Axial images at 5 mm thick sections. Reconstructed images in the coronal plane. Delayed images through the kidneys. Contrast used:100 mL of Isovue 300 with IV Contrast, (none if empty) Oral contrast used: with Oral Contrast (none if empty) CT DLP: 1887.10 mGycm, Automated exposure control for dose reduction was used. FINDINGS: CT CHEST: Portion of the thyroid visualized is normal. There is a 2.5 cm mass at the left lung base, series 6 image 53. This was present on the comparison P ET/CT of 11/16/2023 No enlarged mediastinal or hilar adenopathy is evident. The ascending aorta diameter at the level of the main pulmonary artery is 3.2 cm. The main pulmonary artery diameter at the bifurcation is 2.4 cm. Coronary artery calcification is present. CT ABDOMEN: Liver: Normal Spleen: Normal Pancreas: Normal Adrenal glands: The adrenal glands are normal. Gallbladder: Normal Kidneys: No masses are evident. No hydronephrosis is present. No cysts are present. Delayed images were obtained through the kidneys, which remain unremarkable. Aorta: Vascular calcification is within the aorta. Inferior vena cava: Normal. CT PELVIS: Loops of bowel within the abdomen and pelvis are normal. There are loops of bowel which are incom pletely distended or lack oral contrast limiting their evaluation. Fecal debris is within the sigmoid colon. Appendix: Normal as visualized. Urinary bladder: Normal. Genitourinary structures: Prostate is normal Osseous structures: No suspicious lytic or sclerotic lesions. Central endplate spur is present L5-S1. Spinal canal stenosis is not evident disc bulge is present at L3-4. Lymphadenopathy: No suspicious enlarged lymph nodes are evident. Couple of tiny mediastinal lymph nod es are present. No enlarged mediastinal or hilar adenopathy is evident. No suspicious retrocrural selena nopathy. No periaortic or retrocaval adenopathy. No iliac chain Greater canal adenopathy. No suspicious enlarged inguinal adenopathy. Couple small inguinal lymph nod es are present. IMPRESSION: 1. Stable nodule left lung base. 2. No suspicious enlarged lymph nodes by CT criteria [facility], , 03/05/2024 2:47 PM
== END | disposition home or self-care (01) ==
LOC: RADCTMAIN 09:02
PROVIDERS: ATTEND Internal Medicine Hematology & Oncology
DX: C83.38 Diffuse large B-cell lymphoma, lymph nodes of multiple sites (principal); R91.1 Solitary pulmonary nodule
CPT/HCPCS: 82565; 84520; 71260; 74177; 36415; Q9967

== ENCOUNTER 2024-04-28 18:36 | Emergency (ER) | payer OTHER ==
--- NOTE | 2024-04-28 19:05 | ED ---
General Adult HPI - General Chief complaint: Recheck/Abnormal Lab/Rx Stated complaint: Cancer complications Time Seen by Provider: 04/28/24 18:44 Source: patient, RN notes reviewed, old records reviewed Mode of arrival: ambulatory Limitations: no limitations - History of Present Illness Initial comments: 54-year-old male sent in by his oncologist with abnormal MRI. Patient has history of metastatic melanoma and large B-cell lymphoma. He received an MRI which showed multiple lesions with mass effect. The patient does admit for over the past 3 days he has had headache and unsteady gait. He also reports some numbness to the left upper extremity over the past 3 days. - Related Data Home Medications Medication Instructions Recorded Confirmed lisinopriL [Zestril] 20 mg PO DAILY 04/24/23 04/28/24 Ibuprofen [Motrin] 800 mg PO TID PRN 04/28/24 04/28/24 glipiZIDE [Glucotrol] 10 mg PO DAILY 04/28/24 04/28/24 Allergies Allergy/AdvReac Type Severity Reaction Status Date / Time Penicillins Allergy Unknown Verified 04/28/24 19:16 Childhood Review of Systems ROS Statement: Those systems with pertinent positive or pertinent negative responses have been documented in the HPI. ROS Other: All systems not noted in ROS Statement are negative. Past Medical History Past Medical History: Cancer, Diabetes Mellitus, Hyperlipidemia, Hypertension, Skin Disorder Additional Past Medical History / Comment(s): Dx 2020-STAGE 3 MELONOMA-LT SIDE AND BACK- no chemo, no radiation, received immunotherapy for 1 year. Type II diabetic. April-"They found a spot on my lung." "They don't know what it is." lower extremity neuropathy History of Any Multi-Drug Resistant Organisms: None Reported Additional Past Surgical History / Comment(s): 07/12/23 portagram,2020-MELANOMA LT SIDE AND BACK REMOVED WITH 29 LYMPH NODES REMOVED. April of 2023 lt groin did bx r/t Lymphoma. Past Anesthesia/Blood Transfusion Reactions: No Reported Reaction Additional Past Anesthesia/Blood Transfusion Reaction / Comment(s): No hx of blood transfusion. Past Psychological History: No Psychological Hx Reported Smoking Status: Former smoker, Vaper Past Alcohol Use History: None Reported Past Drug Use History: Marijuana - Past Family History Father Family Medical History: Cancer Additional Family Medical History / Comment(s): LYMPHOMA General Exam Limitations: no limitations General appearance: alert, in no apparent distress Head exam: Present: atraumatic, normocephalic Eye exam: Present: normal appearance, PERRL ENT exam: Present: normal exam Neck exam: Present: normal inspection. Absent: tenderness, meningismus Respiratory exam: Present: normal lung sounds bilaterally. Absent: respiratory distress, wheezes Cardiovascular Exam: Present: regular rate, normal rhythm GI/Abdominal exam: Present: soft. Absent: distended, tenderness Extremities exam: Present: normal inspection, normal capillary refill Neurological exam: Present: alert, oriented X3, CN II-XII intact, motor sensory deficit (Subtle drift in the left upper extremity, no ataxia) Psychiatric exam: Present: normal affect, normal mood Skin exam: Present: warm, dry, intact. Absent: cyanosis, diaphoretic Course Vital Signs 04/28/24 18:41 Temperature 97.7 F Pulse Rate 72 Respiratory 16 Rate Blood Pressure 159/87 O2 Sat by Pulse 99 Oximetry Medical Decision Making - Medical Decision Making Was pt. sent in by a medical professional or institution (, PA, CHILDCARE PROVIDER, urgent care, hospital, or custodial...) When possible be specific @Sent in by Dr. Carballo with plan to transfer to [facility] Did you speak to anyone other than the patient for history (EMS, parent, family, police, friend...)? What history was obtained from this source @ -No Did you review nursing and triage notes (agree or disagree)? Why? @ -I reviewed and agree with nursing and triage notes Were old charts reviewed (outside hosp., previous admission, EMS record, old EKG, old radiological studies, urgent care reports/EKG's, custodial records)? Report findings @ -No old charts were reviewed Differential CVA Ischemic stroke, hemorrhagic stroke, brain tumor, atypical migraine, Wernicke's encephalopathy, seizure, multiple sclerosis, meningitis, encephalitis, hypoglycemia, Guillain-Fitzgerald, electrolytes disturbance, myasthenia gravis.... This is not meant to be an all-inclusive list EKG interpreted by me (3pts min.). @Sinus rhythm rate of 60, FL interval 130, QRS duration 117, QTc [address] segment elevation X-rays interpreted by me (1pt min.). @ -None done CT interpreted by me (1pt min.). @ -Outpatient MRI showing multiple brain lesions with vasogenic edema U/S interpreted by me (1pt. min.). @ -None done What testing was considered but not performed or refused? (CT, X-rays, U/S, labs)? Why? @ -None What meds were considered but not given or refused? Why? @ -None Did you discuss the management of the patient with other professionals (professionals i.e. DrTristan, PA, CHILDCARE PROVIDER, lab, RT, psych nurse, geriatric social work professor, folder seamer, teacher, senior credit officer, correctional case manager)? Give summary @Patient sent in by Dr. Carballo with plan to transfer to [facility]. Case discussed with [facility] accepting physician Dr. Lopez, covering for neurosurgery Was smoking cessation discussed for >3mins.? @ -No Was critical care preformed (if so, how long)? @ yes 35 min Were there social determinants of health that impacted care today? How? (Homelessness, low income, unemployed, alcoholism, drug addiction, transportation, low edu. Level, literacy, decrease access to med. care, retirement, re hab)? @ -No Was there de-escalation of care discussed even if they declined (Discuss DNR or withdrawal of care, Hospice)? DNR status @ -No What co-morbidities impacted this encounter? (DM, HTN, Smoking, COPD, CAD, Cancer, CVA, ARF, Chemo, Hep., AIDS, mental health diagnosis, sleep apnea, morbid obesity)? @ -History of melanoma and large B-cell lymphoma Was patient admitted / discharged? Hospital course, mention meds given and route, prescriptions, significant lab abnormalities, going to OR and other pertinent info. @ -[54-year-old male with abnormal outpatient MRI, likely metastatic cancer with enhancing lesions on MRI with vasogenic edema and midline shift. Patient given Decadron and Keppra in the emergency department. He has a hyponatremia 127 and is placed on normal saline. He is transferred to [facility] for further evaluation. Undiagnosed new problem with uncertain prognosis? @ -No Drug Therapy requiring intensive monitoring for toxicity (Heparin, Nitro, Insulin, Cardizem)? @ -No Were any procedures done? @ -No Diagnosis/symptom? @ -[Brain lesion with vasogenic edema and mass effect Acute, or Chronic, or Acute on Chronic? @ -Acute Uncomplicated (without systemic symptoms) or Complicated (systemic symptoms)? @ -[default Side effects of treatment? @ -No Exacerbation, Progression, or Severe Exacerbation? @ -No Poses a threat to life or bodily function? How? (Chest pain, [place], [place], pneumonia, PE, COPD, DKA, ARF, appy, cholecystitis, CVA, Diverticulitis, Homicidal, Suicidal, threat to staff... and all critical care pts) @Yes, metastatic cancer, mass effect with risk of focal neurologic findings, herniation, seizure - Lab Data Result diagrams: 04/28/24 18:58 04/28/24 18:58 Lab Results 04/28/24 04/28/24 04/28/24 Range/Units 18:58 18:58 18:58 WBC 5.0 (3.8-10.6) k/uL RBC 4.53 (4.30-5.90) m/uL Hgb 13.3 (13.0-17.5) gm/dL Hct 41.7 (39.0-53.0) % MCV 92.0 (80.0-100.0) fL MCH 29.5 (25.0-35.0) pg MCHC 32.0 (31.0-37.0) g/dL RDW 13.5 (11.5-15.5) % Plt Count 186 (150-450) k/uL MPV 8.1 Neutrophils % 64 % Lymphocytes % 21 % Monocytes % 7 % Eosinophils % 7 % Basophils % 1 % Neutrophils # 3.2 (1.3-7.7) k/uL Lymphocytes # 1.0 (1.0-4.8) k/uL Monocytes # 0.4 (0-1.0) k/uL Eosinophils # 0.4 (0-0.7) k/uL Basophils # 0.0 (0-0.2) k/uL PT 10.4 (10.0-12.5) sec INR 0.9 (<1.2) APTT 23.2 (22.0-30.0) sec Sodium 127 L (137-145) mmol/L Potassium 4.7 (3.5-5.1) mmol/L Chloride 94 L (98-107) mmol/L Carbon Dioxide 25 (22-30) mmol/L Anion Gap 8 mmol/L BUN 15 (9-20) mg/dL Creatinine 1.00 (0.66-1.25) mg/dL Est GFR (CKD-EPI)AfAm >90 (>60 ml/min/1.73 sqM) Est GFR (CKD-EPI)NonAf 86 (>60 ml/min/1.73 sqM) Glucose 230 H (74-99) mg/dL Calcium 9.8 (8.4-10.2) mg/dL Total Bilirubin 0.7 (0.2-1.3) mg/dL AST 46 (17-59) U/L ALT 47 (4-49) U/L Alkaline Phosphatase 77 (38-126) U/L Total Protein 7.9 (6.3-8.2) g/dL Albumin 4.7 (3.5-5.0) g/dL Critical Care Time Critical Care Time: Yes Total Critical Care Time: 35 Disposition Clinical Impression: Brain mass, Vasogenic brain edema Disposition: OTHER INSTITUTION NOT DEFINED Condition: Stable Is patient prescribed a controlled substance at d/c from ED?: No Referrals: Tomy Green MD [Primary Care Provider] - 1-2 days Time of Disposition: 19:42 - Out of Hospital Transfer - Req. Specs Out of Hospital Transfer - Requested Specifics: Other Emergency Center (Transfer to [facility])
[2024-04-28] MEDS: SODIUM CHLORIDE 0.9% 500 ML 500 ML IV ONE (19:10)
[2024-04-28] MEDS: DEXAMETHASONE SOD PHOSPHATE 10 MG/ML 1 ML VIAL IV STA (19:10)
[2024-04-28] MEDS: levETIRAcetam IV 2,000 MG in SODIUM CHLORIDE 0.9% 250 ML IVPB ONE (19:13)
[2024-04-28 19:22] LABS: Basophils % (A) 1 %; Eosinophils # (A) 0.4 k/uL (0-0.7); Eosinophils % (A) 7 %; HCT 41.7 % (39.0-53.0); HGB 13.3 gm/dL (13.0-17.5); Lymphocytes % (A) 21 %; MCH 29.5 pg (25.0-35.0); Mean Platelet Volume 8.1; Monocytes # (A) 0.4 k/uL (0-1.0); Monocytes % (A) 7 %; Neutrophils # (A) 3.2 k/uL (1.3-7.7); Neutrophils % (A) 64 %; Platelet Count 186 k/uL (150-450); RBC 4.53 m/uL (4.30-5.90); RDW 13.5 % (11.5-15.5)
[2024-04-28 19:25] LABS: INR 0.9 (<1.2); Partial Thromboplastin Time 23.2 sec (22.0-30.0); Prothrombin Time 10.4 sec (10.0-12.5)
[2024-04-28 19:26] LABS: ALT 47 U/L (4-49); AST 46 U/L (17-59); African American GFR (CKD) >90 (>60 ml/min/1.73 sqM); Albumin 4.7 g/dL (3.5-5.0); Alkaline Phosphatase 77 U/L (38-126); Anion Gap 8 mmol/L; Blood Urea Nitrogen 15 mg/dL (9-20); Calcium 9.8 mg/dL (8.4-10.2); Carbon Dioxide 25 mmol/L (22-30); Chloride 94 mmol/L (98-107); Glucose 230 mg/dL (74-99); Non-African American GFR(CKD) 86 (>60 ml/min/1.73 sqM); Potassium 4.7 mmol/L (3.5-5.1); Sodium 127 mmol/L (137-145); Total Bilirubin 0.7 mg/dL (0.2-1.3); Total Protein 7.9 g/dL (6.3-8.2)
[2024-04-28] MEDS: SODIUM CHLORIDE 0.9% 1,000 ML IV SCH (19:39)
[2024-04-28 20:09] VITALS: BP 154/79; PULSE 74; RESP 18; TEMP 98
== END 2024-04-28 20:11 | disposition other institution (70) ==
LOC: EC 18:36
DX: G93.6 Cerebral edema (principal); C71.9 Malignant neoplasm of brain, unspecified; C83.30 Diffuse large B-cell lymphoma, unspecified site; F17.290 Nicotine dependence, other tobacco product, uncomplicated
CPT/HCPCS: 36415; 93005; 80053; 85025; 85610; 85730; 99285; 96365; 96375; J1100; J1953

== ENCOUNTER → 2024-04-28 | Outpatient (CLI) | payer OTHER ==
--- NOTE | 2024-04-28 16:31 | MR ---
INDICATION: Patient age:Male; 54 years old; Reason for study: C83.38 DIFFUSE LARGE B-CELL LYMPHOMA, LYMPH NODES; [facility]. COMPARISON: MRI brain 12/24/2019. TECHNIQUE: Multi planar, multi sequence imaging was performed through the brain. The patient was then given 10 cc of Gadobutrol intravenously and multi planar, T1 fat-saturation images were obtained. FINDINGS: The lund-white junctions and basal cisterns appear unremarkable. Approximately 6 enhancing intra-axia l lesions identified within the supratentorial cerebrum. Largest is within the anterior right frontal lobe measuring 3.3 x 2.8 cm with a large amount of surrounding vasogenic edema. Additional one is id entified within the left frontal lobe measuring 1.6 x 1.2 cm with vasogenic edema. Another is identif ied within the posterior right parietal lobe measuring 1.3 x 1.1 cm with vasogenic edema. Tiny enhanc ing focus identified within the left caudate head measuring up to 0.3 cm. Peripheral inferior right f rontal lobe with 3 cm enhancing focus. Finally an additional right frontoparietal temporal region enh ancing lesion measuring 1.5 x 1.3 cm with some surrounding vasogenic edema. These lesions demonstrate heterogenous T1/T2 intensity. The 3 largest lesions demonstrate susceptibility artifact consistent w ith calcification and/or hemosiderin deposition. The largest lesions demonstrate some restricted diff usion. The dominant right frontal lesion causes approximately 7 mm of leftward midline shift with effacement of the anterior horn of the right lateral ventricle. No hydrocephalus. A few additional supratentori al periventricular and subcortical FLAIR hyperintense foci without enhancement. Diffusion-weighted imaging shows no evidence of restricted diffusion to suggest acute/subacute infarc t. Intracranial arterial flow voids are maintained. The bone marrow signal is within normal limits. The paranasal sinuses and globes are unremarkable. IMPRESSION: 1. Evidence of metastatic disease with 6 enhancing lesions with surrounding vasogenic edema. The larg est within the right frontal lobe causes mass effect with approximately 7 mm of leftward midline shif t. 2. Nonspecific white matter changes without enhancement, likely related to small vessel ischemic dise ase versus other etiologies. A Red level critical message alert has been initiated for [facility] via the [employer] Critical Results System on 04/28/2024 4:29 PM. This message alert has been sent to [facility] via the preferenc es provided by the clinician for the receipt of Radiology Critical Findings. Message ID [id number]. [facility], , 04/28/2024 4:29 PM [facility], , 04/28/2024 4:29 PM
== END | disposition home or self-care (01) ==
LOC: RADMRIMAIN 15:34
PROVIDERS: ATTEND Internal Medicine Hematology & Oncology
DX: C83.38 Diffuse large B-cell lymphoma, lymph nodes of multiple sites (principal); C43.59 Malignant melanoma of other part of trunk; G62.9 Polyneuropathy, unspecified; E11.9 Type 2 diabetes mellitus without complications; R90.82 White matter disease, unspecified
CPT/HCPCS: 70553; A9585